=== PATIENT | male | born 1990 | race Caucasian/White ===

== ENCOUNTER 2019-03-08 14:42 | Emergency (ER) | payer SELFPAY ==
[~2019-03-08] VITALS: Ht 177.8 cm; Wt 147.4 kg
[~2019-03-08 14:42] MED LIST: HYDR1TAB PO; HYDR1TAB8 OP; LAMICTAL
[2019-03-08 15:09] LABS: BASOPHILS # (AUTO) 0.1 10^3/uL (0.0-0.1); BASOPHILS % (AUTO) 1 % (0-10); EOSINOPHILS # (AUTO) 0.1 10^3/uL (0.0-0.3); EOSINOPHILS % (AUTO) 2 % (0-10); HEMATOCRIT 45 % (40-54); HEMOGLOBIN 15.3 G/DL (13.3-17.7); LYMPHOCYTES # (AUTO) 2.3 X 10^3 (1.0-4.0); LYMPHOCYTES % (AUTO) 33 % (12-44); MEAN CORPUSCULAR HEMOGLOBIN 29 PG (25-34); MEAN CORPUSCULAR HGB CONC 34 G/DL (32-36); MEAN CORPUSCULAR VOLUME 85 FL (80-99); MEAN PLATELET VOLUME 10.1 FL (7.4-10.4); MONOCYTES # (AUTO) 0.7 X 10^3 (0.0-1.0); MONOCYTES % (AUTO) 10 % (0-12); NEUTROPHILS # (AUTO) 3.7 X 10^3 (1.8-7.8); NEUTROPHILS % (AUTO) 54 % (42-75); PLATELET COUNT 245 10^3/uL (130-400); RED CELL DISTRIBUTION WIDTH 12.6 % (10.0-14.5); WHITE BLOOD COUNT 6.9 10^3/uL (4.3-11.0)
--- NOTE | 2019-03-08 15:26 | NUR ---
Patient back to room from X-ray.
[2019-03-08 15:27] LABS: ALANINE AMINOTRANSFERASE 51 U/L (0-55); ALBUMIN 4.4 GM/DL (3.2-4.5); ALKALINE PHOSPHATASE 79 U/L (40-136); BILIRUBIN,TOTAL 0.4 MG/DL (0.1-1.0); BUN/CREATININE RATIO 16; CALCIUM 9.3 MG/DL (8.5-10.1); CARBON DIOXIDE 28 MMOL/L (21-32); CHLORIDE 104 MMOL/L (98-107); CREATININE SERUM 0.98 MG/DL (0.60-1.30); GFR ESTIMATED > 60; GLUCOSE 91 MG/DL (70-105); MAGNESIUM 1.9 MG/DL (1.6-2.4); POTASSIUM 3.8 MMOL/L (3.6-5.0); SODIUM 141 MMOL/L (135-145); TOTAL PROTEIN 7.7 GM/DL (6.4-8.2)
--- NOTE | 2019-03-08 15:27 | Diagnostic Imaging Report ---
INDICATION: Left-sided chest pain. COMPARISON: 09/15/2007. FINDINGS: Frontal and lateral views of the chest demonstrate normal heart size and pulmonary vascularity. The lungs are clear. There are no signs of infiltrate, pleural effusions or pneumothoraces. The visualized osseous structures show no acute abnormalities. IMPRESSION: 1. No acute process. No signs of infiltrates, effusions or pneumothoraces. Dictated by: Dictated on workstation # [id number]
[2019-03-08 15:28] LABS: INR 0.9 (0.8-1.4); PROTHROMBIN TIME PATIENT 12.6 SEC (12.2-14.7)
[2019-03-08] MEDS ORDERED: KETOROLAC 30 MG/ML VIAL IVP ONE (16:00)
[2019-03-08 16:30] VITALS: BP_SYST 120; BP_SYST 122; BP_SYST 129; BP_DIAS 73; BP_DIAS 75; BP_DIAS 86
--- NOTE | 2019-03-08 17:08 | NUR ---
Blood drawn by RN for repeat Troponin.
--- NOTE | 2019-03-08 17:54 | ED Chest Pain ---
General Chief Complaint: Chest Pain Stated Complaint: SOB,DIZZY Nursing Triage Note: Patient ambulatory to ER room 8 with spouse with complaint of left chest pain and shortness of breath that began this morning around 10:00 AM while driving a vehicle. Patient also complained of left arm pain, dizziness and feeling lightheaded. Patient states he had shingles several weeks ago and just finished the medication for the shingles. He did take a Hydrocodone tablet last night. Nursing Sepsis Screen: No Definite Risk Source: patient Exam Limitations: no limitations History of Present Illness Date Seen by Provider: Mar 08, 2019 Time Seen by Provider: 14:50 Initial Comments This 29-year-old young man presents to the emergency room with complaints of left-sided chest pain, lightheadedness, and shortness of breath that started around 10:00. He has had intermittent episodes of this since then. He has had prior episodes that were less persistent. He reports rapid heart rate at the time. The pain in his chest is sharp. Sometimes deep breathing makes it better. Sometimes a deep breath makes it worse. He recently had shingles on his left lower chest. He finished the treatment for this and states this pain feels different. 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 He denies any tobacco use. He quit smoking about one year ago and now chews tobacco. He drinks alcohol on the weekends. Johanny Terry is his primary care provider. Allergies and Home Medications Allergies Coded Allergies: Penicillins (Verified Allergy, Severe, Shortness of Breath, 03/08/19) amoxicillin (Verified Allergy, Severe, Shortness of Breath, 03/08/19) lithium (Unverified Allergy, Unknown, HIVES, 03/08/19) Home Medications Hydrocodone Bit/Acetaminophen 1 Each Tablet, 1-2 EACH PO Q4HR PRN Prescribed by: YASMIN VERAS on 12/04/09 6060 Hydrocodone Bit/Ibuprofen 1 Each Tablet, 1-2 EACH OP Q 4 - 6 HRS PRN FOR PAIN Prescribed by: GRAZYNA BOWENS on 04/15/10 9198 Patient Home Medication List Home Medication List Reviewed: Yes Review of Systems Review of Systems Constitutional: no symptoms reported EENTM: No Symptoms Reported Respiratory: See HPI Cardiovascular: See HPI Gastrointestinal: No Symptoms Reported Genitourinary: No Symptoms Reported Musculoskeletal: see HPI Skin: see HPI Psychiatric/Neurological: No Symptoms Reported Endocrine: No Symptoms Reported Hematologic/Lymphatic: No Symptoms Reported Past [place]-Tirbbz-Gsozae Hx Past Med/Social Hx: Reviewed Nursing Past Med/Soc Hx Patient Social History Alcohol Use: Occasionally Uses Recreational Drug Use: No Smoking Status: Former Smoker Type Used: Cigarettes, Smokeless Tobacco Recent Foreign Travel: No Contact w/Someone Who Travel: No Recent Infectious Disease Expo: No Recent Hopitalizations: No Immunizations Up To Date PED Vaccines UTD: Yes Seasonal Allergies Seasonal Allergies: No Past Medical History Surgeries: No Respiratory: No Cardiac: Yes High Cholesterol Neurological: No Genitourinary: No Gastrointestinal: No Musculoskeletal: No Endocrine: No HEENT: No Cancer: No Psychosocial: No Integumentary: Yes (shingles) Blood Disorders: No Physical Exam Vital Signs Vital Signs - First Documented Capillary Refill : Less Than 3 Seconds Height, Weight, BMI Height: 5'10.00" Weight: 325lbs. oz. 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 Norm as Tested Skin: Normal Color, Warm/Dry Progress/Results/Core Measures Results/Orders Lab Results Laboratory Tests Test 03/08/19 14:54 03/08/19 17:07 Range/Units White Blood Count 6.9 4.3-11.0 10^3/uL Red Blood Count 5.30 4.35-5.85 10^6/uL Hemoglobin 15.3 13.3-17.7 G/DL Hematocrit 45 40-54 % Mean Corpuscular Volume 85 80-99 FL Mean Corpuscular Hemoglobin 29 25-34 PG Mean Corpuscular Hemoglobin Concent 34 32-36 G/DL Red Cell Distribution Width 12.6 10.0-14.5 % Platelet Count 245 130-400 10^3/uL Mean Platelet Volume 10.1 7.4-10.4 FL Neutrophils (%) (Auto) 54 42-75 % Lymphocytes (%) (Auto) 33 12-44 % Monocytes (%) (Auto) 10 0-12 % Eosinophils (%) (Auto) 2 0-10 % Basophils (%) (Auto) 1 0-10 % Neutrophils # (Auto) 3.7 1.8-7.8 X 10^3 Lymphocytes # (Auto) 2.3 1.0-4.0 X 10^3 Monocytes # (Auto) 0.7 0.0-1.0 X 10^3 Eosinophils # (Auto) 0.1 0.0-0.3 10^3/uL Basophils # (Auto) 0.1 0.0-0.1 10^3/uL Prothrombin Time 12.6 12.2-14.7 SEC INR Comment 0.9 0.8-1.4 Activated Partial Thromboplast Time 28 24-35 SEC D-Dimer 0.38 0.00-0.49 UG/ML Sodium Level 141 135-145 MMOL/L Potassium Level 3.8 3.6-5.0 MMOL/L Chloride Level 104 98-107 MMOL/L Carbon Dioxide Level 28 21-32 MMOL/L Anion Gap 9 5-14 MMOL/L Blood Urea Nitrogen 16 7-18 MG/DL Creatinine 0.98 0.60-1.30 MG/DL Estimat Glomerular Filtration Rate > 60 BUN/Creatinine Ratio 16 Glucose Level 91 70-105 MG/DL Calcium Level 9.3 8.5-10.1 MG/DL Corrected Calcium 9.0 8.5-10.1 MG/DL Magnesium Level 1.9 1.6-2.4 MG/DL Total Bilirubin 0.4 0.1-1.0 MG/DL Aspartate Amino Transf (AST/SGOT) 31 5-34 U/L Alanine Aminotransferase (ALT/SGPT) 51 0-55 U/L Alkaline Phosphatase 79 40-136 U/L Myoglobin 37.5 10.0-92.0 NG/ML Troponin I < 0.028 < 0.028 <0.028 NG/ML Total Protein 7.7 6.4-8.2 GM/DL Albumin 4.4 3.2-4.5 GM/DL My Orders Orders - MAXINE BAUMAN MD Cbc With Automated Diff (03/08/19 15:01) Magnesium (03/08/19 15:01) Ekg Tracing (03/08/19 15:01) Cardiac Profile 1 (03/08/19 15:01) Comprehensive Metabolic Panel (03/08/19 15:01) Myoglobin Serum (03/08/19 15:01) Protime With Inr (03/08/19 15:01) Partial Thromboplastin Time (03/08/19 15:01) O2 (03/08/19 15:01) Monitor-Rhythm Ecg Trace Only (03/08/19 15:01) Ed Iv/Invasive Line Start (03/08/19 15:01) Fibrin Degradation Products (03/08/19 15:01) Chest Pa/Lat (2 View) (03/08/19 15:04) Troponin I (03/08/19 17:00) Ketorolac Injection (Toradol Injection) (03/08/19 16:00) Orthostatic Vital Signs (Adult (03/08/19 16:16) Medications Given in ED Current Medications Medications Dose Ordered Sig/Mitesh Route Start Time Stop Time Status Last Admin Dose Admin Ketorolac Tromethamine 15 mg ONCE ONCE IVP 03/08/19 16:00 03/08/19 16:01 DC 03/08/19 16:43 15 MG Vital Signs/I&O 03/08/19 03/08/19 03/08/19 03/08/19 14:47 14:47 16:30 18:00 Temp 97.9 96.8 Pulse 99 82 87 85 88 Resp 20 14 B/P (MAP) 134/76 (95) 120/73 (89) 130/74 (92) 122/75 (91) 129/86 (100) Pulse Ox 98 97 O2 Delivery Room Air Room Air Room Air Blood Pressure Mean: 100 Progress Progress Note : Progress Note Workup was unremarkable. Chest pain resolved with Toradol. Repeat troponin was negative. Chest pain could be related to lingering shingles, costochondritis, other noncardiac cause. The dizziness/lightheadedness was concerning to the patient. I advised that he follow closely with his primary care provider and discuss the potential for doing outpatient cardiac monitoring. Initial ECG Impression Date: Mar 08, 2019 Initial ECG Impression Time: 14:51 Initial ECG Rate: 95 Initial ECG Rhythm: Normal Sinus Comment Sinus tachycardia with no ST elevation or depression. No abnormal intervals or axis deviation. Diagnostic Imaging Diagonstic Imaging: Xray Plain Films/CT/US/NM/MRI: chest Comments Chest x-ray viewed by me and report reviewed. See report below: NAME: GLORIA DIALLO [facility] REC#: [id number] PT STATUS: REG ER : 1990 PHYSICIAN: MAXINE BAUMAN MD ADMIT DATE: 03/08/19/ER Draft Date of Exam:03/08/19 CHEST PA/LAT (2 VIEW) INDICATION: Left-sided chest pain. COMPARISON: 09/15/2007. FINDINGS: Frontal and lateral views of the chest demonstrate normal heart size and pulmonary vascularity. The lungs are clear. There are no signs of infiltrate, pleural effusions or pneumothoraces. The visualized osseous structures show no acute abnormalities. IMPRESSION: 1. No acute process. No signs of infiltrates, effusions or pneumothoraces. Dictated on workstation # [id number] Dict: 03/08/19 1526 Trans: 03/08/19 1527 [id number] Interpreted by: IRIS REYES MD Departure Impression Primary Impression: Atypical chest pain Additional Impression: Lightheadedness Disposition: 01 HOME, SELF-CARE Condition: Improved Departure-Patient Inst. Decision time for Depature: 17:50 Referrals: NO,LOCAL PHYSICIAN (PCP/Family) Primary Care Physician Patient Instructions: Chest Pain That Is Not Caused by the Heart (DC) Add. Discharge Instructions: Follow-up with your primary care provider as soon as possible. Drink plenty of clear liquids to stay well-hydrated. Return to emergency room if you have worsening episodes of pallor or dizziness. For chest pain you may take ibuprofen up to 600 mg every 6 hours as needed and/or Tylenol (acetaminophen) up to 1000 mg every 6 hours as needed. All discharge instructions reviewed with patient and/or family. Voiced understanding. Work/School Note: Work Release Form Date Seen in the Emergency Department: Mar 08, 2019 Return to Work: Mar 10, 2019 Other Restrictions Listed Below: May return to work if free of dizziness MAXINE BAUMAN MD Mar 08, 2019 17:54
[2019-03-08 18:00] VITALS: BP 130/74
== END 2019-03-08 18:00 | disposition home or self-care (01) ==
LOC: EDUNIT# 14:42 → ER 14:44
DX: R07.89 Other chest pain (principal); R42 Dizziness and giddiness; E78.00 Pure hypercholesterolemia, unspecified; Z88.0 Allergy status to penicillin; Z88.1 Allergy status to other antibiotic agents; Z88.8 Allergy status to other drugs, medicaments and biological substances; Z87.891 Personal history of nicotine dependence
CPT/HCPCS: 36415; 71046; 80053; 83735; 83874; 84484; 85025; 85379; 85610; 85730; 93005; 96374

== ENCOUNTER 2022-10-22 06:31 | Emergency (ER) | payer SELFPAY ==
--- NOTE | 2022-10-22 06:42 | ED Lower Extremity ---
General Chief Complaint: Lower Extremity Stated Complaint: RT BIG TOE PAIN Source: patient Exam Limitations: no limitations History of Present Illness Date Seen by Provider: Oct 22, 2022 Time Seen by Provider: 06:42 Initial Comments Patient is a 32-year-old male who presents to the emergency room with a chief complaint of pain in the area of the right great toe at the MTP joint. Patient states the pain started last night. He has not taken anything for the pain, no Tylenol, aspirin or ibuprofen. He denies swelling or injury. No recent fevers or chills. Has never had anything like this before. Denies significant protein intake. No family history of gout that he is aware of. Hurts to walk on it. Hurts to move it. Hurts to touch it. Onset: yesterday Severity: severe Pain/Injury Location: right 1st toe Method of Injury: unknown Modifying Factors: Improves With Immobilization; Worse With Jarring, Worse With Movement Allergies and Home Medications Allergies Coded Allergies: Penicillins (Verified Allergy, Severe, Shortness of Breath, 03/08/19) amoxicillin (Verified Allergy, Severe, Shortness of Breath, 03/08/19) lithium (Unverified Allergy, Unknown, HIVES, 03/08/19) Patient Home Medication List Home Medication List Reviewed: Yes Hydrocodone Bit/Acetaminophen (Vicodin 5-500 Tablet) 1 Each Tablet, 1-2 EACH PO Q4HR PRN Prescribed by: YASMIN VERAS on 12/04/09 2340 Hydrocodone Bit/Ibuprofen (Vicoprofen 200-7.5 Mg Tab) 1 Each Tablet, 1-2 EACH OP Q 4 - 6 HRS PRN Prescribed by: GRAZYNA BOWENS on 04/15/10 2259 Prednisone (Prednisone) 10 Mg Tab.ds.pk, 10 MG PO DAILY Prescribed by: SAUL DOMINGUEZ on 10/22/22 0659 [Lamictal] , (Reported) Entered as Reported by: FELA ISBELL on 12/04/092207 Review of Systems Constitutional: see HPI Gastrointestinal: no symptoms reported Musculoskeletal: joint pain (Right great toe, MTP joint) Skin: no symptoms reported Psychiatric/Neurological: No Symptoms Reported All Other Systems Reviewed Negative Unless Noted: Yes Past Tmiqibh-Irbhak-Gfalin Hx Patient Social History Tobacco Use?: No Substance use?: Yes Substance type: Marijuana Substance frequency: Once in a while Alcohol Use?: Yes Alcohol Frequency: Once in a while Immunizations Up To Date PED Vaccines UTD: Yes Seasonal Allergies Seasonal Allergies: No Past Medical History Surgeries: No Respiratory: No Cardiac: Yes High Cholesterol Neurological: No Genitourinary: No Gastrointestinal: No Musculoskeletal: No Endocrine: No HEENT: No Cancer: No Psychosocial: No Integumentary: Yes (shingles) Blood Disorders: No Physical Exam Vital Signs Vital Signs - First Documented 10/22/22 06:38 Temp 36.1 Pulse 91 Resp 18 B/P (MAP) 154/84 (107) Pulse Ox 98 O2 Delivery Room Air Capillary Refill : Height, Weight, BMI Height: 5'10.00" Weight: 325lbs. oz. 147.268456wo; BMI Method:Stated General Appearance: WD/WN, no apparent distress Cardiovascular: regular rate, rhythm Respiratory: lungs clear, normal breath sounds, no respiratory distress, no accessory muscle use Hips: bilateral hip non-tender, bilateral hip normal inspection, bilateral hip normal range of motion, bilateral hip no evidence of injury Legs: bilateral leg non-tender, bilateral leg normal inspection, bilateral leg normal range of motion, bilateral leg no evidence of injury Knees: bilateral knee non-tender, bilateral knee normal inspection, bilateral knee normal range of motion, bilateral knee no evidence of injury Ankles: bilateral ankle non-tender, bilateral ankle normal inspection, bilateral ankle normal range of motion, bilateral ankle no evidence of injury Feet: right foot pain (Tenderness with palpation and manipulation of the right great toe. Most of the tenderness appears to be medial to the MTP joint of the great toe. No swelling or overlying erythema) Neurologic/Tendon: normal sensation Neurologic/Psychiatric: alert, normal mood/affect, oriented x 3 Skin: normal color, warm/dry Progress/Results/Core Measures Results/Orders Lab Results Laboratory Tests Test 10/22/22 06:50 Range/Units Glucometer 103 70-110 MG/DL My Orders Orders - SAUL DOMINGUEZ MD Ibuprofen Tablet (Motrin Tablet) (10/22/22 07:15) Vital Signs/I&O 10/22/22 10/22/22 06:38 07:55 Temp 36.1 36.8 Pulse 91 87 Resp 18 18 B/P (MAP) 154/84 (107) 139/79 Pulse Ox 98 97 O2 Delivery Room Air Room Air Departure Impression Primary Impression: Pain of right great toe Disposition: HOME, SELF-CARE Condition: Stable Departure-Patient Inst. Decision time for Depature: 06:58 Referrals: SAUL ZAPATA (PCP/Family) Primary Care Physician Patient Instructions: Lifestyle Changes to Manage Gout Add. Discharge Instructions: Take the prednisone as directed on the prescription. This will help with pain and inflammation. While you are on the prednisone you need to take an [id number] acid behavioral modification assistant such as generic Pepcid daily. 20 mg tablets at night. This will help protect your stomach from irritation from the prednisone. You can take additional extra strength Tylenol 2 tablets every 6 hours as needed. Ice packs may help with discomfort as well. If the toe becomes more red or swollen after 2 days on the steroids please follow-up with your primary care physician. Watch her protein intake over the next couple of days. Call your primary care doctor for a follow-up appointment in 1 week. Scripts Prednisone (Prednisone) 10 Mg Tab.ds.pk 10 MG PO DAILY, #21 EA Take 6 tabs(60mg)daily,decrease by 1 tab(10MG)daily. Prov: SAUL DOMINGUEZ MD 10/22/22 Work/School Note: Work Release Form Date Seen in the Emergency Department: Oct 22, 2022 Return to Work: Oct 23, 2022 SAUL DOMINGUEZ MD Oct 22, 2022 06:42
[2022-10-22] MEDS ORDERED: PRED10TA22 PO (06:59)
[2022-10-22] MEDS ORDERED: IBUPROFEN 600 MG (MOTRIN) TAB PO ONE (07:15)
[2022-10-22 07:55] VITALS: BP 139/79
== END 2022-10-22 07:55 | disposition home or self-care (01) ==
LOC: EDUNIT# 06:31 → ER 06:37
DX: M79.674 Pain in right toe(s) (principal); Z28.311 Partially vaccinated for COVID-19
CPT/HCPCS: 82947; 99283